=== PATIENT | male | born 2000 | race Caucasian/White ===

== ENCOUNTER 2024-09-15 18:25 | Emergency (ER) | payer OTHER, SELFPAY ==
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
[2024-09-15 18:28] VITALS: BP 141/87; PULSE 78; RESP 16; TEMP 36.6; O2SAT 99
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
[2024-09-15] MEDS: ACETAMINOPHEN 500 MG TABLET 1000 MG PO (20:02)
[2024-09-15] MEDS: NAPROXEN 500 MG TABLET PO (20:03)
== END 2024-09-15 20:10 | disposition home or self-care (01) ==
LOC: ANHED 20:15
PROVIDERS: Emergency Provider Emergency Medicine; PCP Internal Medicine
DX: M23.91 Unspecified internal derangement of right knee (principal); V89.2XXA Person injured in unspecified motor-vehicle accident, traffic, initial encounter
CPT/HCPCS: 73564; 99283; A9270